=== PATIENT | male | born 1965 | race Caucasian/White ===

== ENCOUNTER 2019-01-15 08:36 | Inpatient (IN) ==
--- NOTE | 2019-01-10 12:42 | Anesthesiology Consultation ---
Date of Service January 10, 2019 Assessment & Plan (1) Encounter for pre-operative examination: Chart Review Chart Review: Acceptable Risk for Surgery and Patient NOT seen in Pre Admission Testing Consults Requested Pt seen by PCP on 01/07/19: "Recent labs reviewed. EKG obtained and NSR at 72 bpm. Pt okay to proceed with scheduled surgery." History Surgery Operation Date: 01/15/19 10:40 Proposed Procedures p Right Below Knee Amputation - Iraj Sauceda MD Height/Weight Height: 1.73 m Weight: 70.76 kg Allergies Allergy/AdvReac Type Severity Reaction Status Date / Time erythromycin base Allergy Intermediate swelling Verified 01/07/19 14:42 Penicillins Allergy Intermediate swelling Verified 01/07/19 14:42 phenazopyridine AdvReac Intermediate gi upsets Verified 01/07/19 14:42 [From Pyridium] Medications Home Medications Medication Instructions Recorded Confirmed Last Taken aspirin [Aspirin Low Dose] 81 mg PO QAM 01/07/19 01/07/19 Unknown cholecalciferol (vitamin D3) 1,000 unit PO QAM 01/07/19 01/07/19 Unknown [Vitamin D3] magnesium oxide 400 mg PO BID 01/07/19 01/07/19 Unknown mycophenolate mofetil [CellCept] 500 mg PO BID 01/07/19 01/07/19 Unknown prednisone 5 mg PO QAM 01/07/19 01/07/19 Unknown sulfamethoxazole-trimethoprim 1 tab PO 3XWK 01/07/19 01/07/19 Unknown [Bactrim] tacrolimus [Prograf] 2 mg PO Q12H 01/07/19 01/07/19 Unknown Past Medical History Medical History Anemia Chronic infection right foot - current issue Chronic steroid use History of anemia History of peritoneal dialysis Past Family History Family History Brother Family history of diabetes mellitus Past Surgical History Surgical History H/O foot surgery RT FOOT (OSTEOMYLITIS) History of herniorrhaphy History of tonsillectomy Hx of eye surgery x2 - detached retina both eyes Hx of kidney transplant both Hx of skin graft Social History Smoking Status: Former smoker Do You Dip or Chew Tobacco: No Smoking End Date: QUIT 5 YEARS AGO Hx Alcohol Use: No Hx Substance Use: No substance use type: does not use Testing Electrocardiogram Date: 12/27/18 Findings: + NSR @ (72) Echocardiogram Date: 08/17/15 EF: 55-60% LV Function: normal Other Findings: + LVH (mild CLVH) Thickened and calcified aortic valve. The aortic valve area is 2.7 cm2 and the mean gradient is 12 mmHg Laboratory Results 01/01/19 BMP: Na: 135 K: 5.4 Cl: 108 CO2: 21 BUN: 39 Creat: 2.3 Glu: 130 CBC: WBC: 2.7 HGB: 8.3 HCT: 26.1 Plt: 14.9
--- NOTE | 2019-01-10 13:05 | History & Physical Report ---
Date of Service January 10, 2019 Assessment & Plan (1) Osteomyelitis of right foot: Patient is scheduled for an elective below-knee amputation with Dr. Sauceda on January 15, 2019 at the [facility]. Risks and complications of the procedure were discussed with the patient and include but are not limited to infection, pain, bleeding, scarring, nerve and blood vessel damage, wound problems, weakness, stiffness, incomplete relief of symptoms, blood clots, embolisms, heart attack, stroke and . All questions were answered and informed consent was obtained by Dr. Sauceda. 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 We will obtain a preoperative CBC, BMP, type and screen, PT/PTT, tacrolimus, albumin, prealbumin and MRSA nasal swab prior to surgery. He was instructed on the usage of CHG cloths prior to surgery. Postoperative course was discussed. We will have him be out of work for at least 3 months after surgery. He will be referred for prosthesis postoperatively. He will most likely be admitted after surgery for a day or 2. All questions were answered and he knows to call with any further problems, questions or concerns. 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 She was sent to Dr. Sauceda by Dr. Salcido from the wound clinic at [place]. 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 He started having trouble with his right foot approximately 4-5 years ago. Patient developed kidney failure proximal by 4 years ago he developed a foot wound in his right foot in 2014. He did have surgery at that time in which an amputation was done. [His states] wound did grow out MRSA. He was on antibiotics and the wound did heal for approximately 2 years. His kidney condition worsen, he went on dialysis and eventually did have a kidney transplant. After being healed for about 2 years the wound open back up in February 2018. He was seen in [place] recently because of his wound problem and an amputation was recommended. He was excised scheduled for surgery but he opted to try IV antibiotics to save his foot instead. He has had a chronic open wound on his right foot ever since February 2018. Last week he spontaneous he developed bleeding from the wound which is review since sounds like it could have been arterial. He was seen at the [facility] which transferred to [facility] in [place]. Bleeding was stopped he was admitted did have x-rays and MRI and was discharged home. He has had no further bleeding continues to do daily packing changes. He does wear her boot on his right foot. He is able to weight-bear as tolerated. He is also continue to work. Basically to the point where he started dealing with the wound and reported to see Dr. Sauceda for surgical consultation. He has state that he has on a go to [place] to have it done and the previous orthopedic surgeons that he saw on the past the recommended surgery have elected not to perform any further surgeries on him. Due to the wound and the Charcot arthropathy of his right foot based on the x- ray and the MRI results surgical attention was recommended by Dr. Sauceda. He recommended a below-knee amputation. The patient has agreed to proceed with surgery. He is scheduled for below knee amputation with Dr. Sauceda on January 15, 2019. Allergies Allergy/AdvReac Type Severity Reaction Status Date / Time erythromycin base Allergy Intermediate swelling Verified 01/07/19 14:42 Penicillins Allergy Intermediate swelling/throat Verified 01/10/19 13:32 swelling phenazopyridine AdvReac Intermediate gi upsets Verified 01/07/19 14:42 [From Pyridium] Home Medications Home Medications Medication Instructions Recorded Confirmed Type aspirin [Aspirin Low Dose] 81 mg PO QAM 01/07/19 01/07/19 History cholecalciferol (vitamin D3) 1,000 unit PO QAM 01/07/19 01/07/19 History [Vitamin D3] magnesium oxide 400 mg PO BID 01/07/19 01/07/19 History mycophenolate mofetil [CellCept] 500 mg PO BID 01/07/19 01/07/19 History prednisone 5 mg PO QAM 01/07/19 01/07/19 History sulfamethoxazole-trimethoprim 1 tab PO 3XWK 01/07/19 01/07/19 History [Bactrim] tacrolimus [Prograf] 2 mg PO Q12H 01/07/19 01/07/19 History Past Med/Surg History Medical History Acid reflux Anemia Heart murmur Neuropathy Retinal detachment Chronic infection right foot - current issue Chronic steroid use History of anemia History of peritoneal dialysis Surgical History H/O foot surgery RT FOOT (OSTEOMYLITIS) History of herniorrhaphy History of tonsillectomy Hx of eye surgery x2 - detached retina both eyes Hx of kidney transplant both Hx of skin graft Family History Brother Family history of diabetes mellitus Social History Preferred Language: Northern Irish Communication Ability: Effective Beliefs That Will Affect Care: None Current Living Situation: Spouse Feels Safe at Home: Yes Smoking Status: Former smoker Hx Alcohol Use: No Hx Substance Use: No Review of Systems Constitutional: no fever, no chills, no sweats, no fatigue and no anorexia Eyes: no diplopia, no discharge, no dry eyes, no eye pain and no itchy eyes Ear, Nose, Mouth, Throat: no ear pain, no tinnitus, no hearing loss, no dizziness, no nasal congestion, no sinus pain/pressure, no dental pain, no dental caries and no sore throat Respiratory: + cough (recent cough, sinus drainage, but improving); no dyspnea and no dyspnea on exertion Cardiovascular: no chest pain, no chest pain at rest, no chest pain with activity, no radiating jaw, neck or arm pain, no dyspnea, no dyspnea at rest, no orthopnea, no palpitations, no lightheadedness, no syncope, no edema and no calf pain Gastrointestinal: no abdominal pain, no belching, no bloating, no heartburn, no constipation and no diarrhea/loose stools Genitourinary (Male): no dysuria, no difficulty urinating, no urinary frequency, no urinary incontinence, no post-void dribbling and no hematuria Musculoskeletal: no back pain, no neck pain, no radicular pain, no joint pain and no stiffness Integumentary: + wounds (right foot); no rash, no lesions, no sores, no erythema and no pruritus Neurologic: + loss of sensation, + numbness and + paresthesia; no gait abnormality, no unsteadiness, no seizure-like activity, no dizziness, no headache(s) and no confusion Psychiatric: + depression and + hopelessness Hematologic / Lymphatic: no easy bleeding, no easy bruising, no coagulopathy and no lymphadenopathy Physical Exam Vital Signs (Past 24 Hours): Height 5 feet 8 inches, weight 156 pounds Constitutional: WD/WN, vitals as above average body habitus; no acute distress Eyes: PERRL, conjunctivae normal, anicteric sclerae EOM intact bilaterally ENMT: external ear and nose normal, oropharynx normal Nose: no nasal discharge and no sinus tenderness Mouth: no oropharynx abnormality, no oral m ucosal abnormality and no dentition abnormality Throat: uvula midline Neck: trachea midline, no thyromegaly normal visual inspection; no neck crepitus Respiratory: normal respiratory effort, lungs clear to auscultation no cough Auscultation: no crackles, no rales, no rhonchi and no wheezes Cardiovascular: Rate/Rhythm: regular rate and regular rhythm Heart Sounds: + murmur (+3/6); no click and no gallop Palpation: no thrill Vessels: dorsalis pedis pulses present; no carotid bruit Extremities: normal capillary refill; no calf tenderness and no edema Gastrointestinal (Abdomen): normal bowel sounds, soft, nontender, no hepatosplenomegaly Musculoskeletal: no cyanosis or clubbing, extremities motor strength 5/5 Head/Neck/Chest: neck supple Extremities: strength 5/5 throughout He has diminished sensation throughout his right foot. The foot is bulbous and enlarged. There is a large wound in the lateral aspect of the foot which is currently packed. Packing was not removed. He reports normal sensation of his leg into the calf and knee area. He has good muscular development. He can flex and extend his ankle slightly. He is able to wiggle his toes. He does ambulate in a boot with no assistive device. Skin: no rashes, warm and dry normal turgor and + ulcer (Right foot) Psychiatric: A+Ox3, euthymic affect Results & Data Laboratory Results CBC, BMP, PT, PTT, type and screen, tacrolimus, albumin, prealbumin, MRSA nasal swab To be done preoperatively, currently pending. Diagnostic Findings X-rays of his right foot demonstrates severe neuropathic and also mild changes of the midfoot and forefoot. Talus and calcaneus as well as the ankle joint looked relatively okay.
[~2019-01-15 08:36] MED LIST: HYDROCORTISONE SOD 100 MG in SYRINGE 0 ML IV SCH; LR 15ML/HR IV SCH; SODIUM CHLORIDE 0.9% 1000ML IV SCH; SODIUM CHLORIDE 0.9% 250 ML IV PRN; VANCOMYCIN HCL 1,000 MG in SODIUM CHLORIDE 0.9% 250 ML IV SCH
[2019-01-15] MEDS ORDERED: fentaNYL citrate 100 MCG/2 ML VIAL ONE ×3 (11:08→14:35)
[2019-01-15] MEDS ORDERED: MIDAZOLAM HCL 1 MG/ML 2ML VIAL ONE (11:08)
[2019-01-15] MEDS ORDERED: DEXAMETHASONE SOD INJ 4 MG/ML VIAL ONE ×2 (11:15→14:14)
[2019-01-15] MEDS ORDERED: BUPIVACAINE/EPINEPHRINE 0.5% MPF 1:200,000 30 ML VIAL ONE (11:15)
--- NOTE | 2019-01-15 11:31 | History & Physical Bridge Note ---
Date of Service January 15, 2019 History & Physical Bridge Note I have examined the patient, reviewed the History & Physical and in the interval since the performance of the History & Physical I have noted the following changes of clinical significance: no changes noted
[2019-01-15] MEDS ORDERED: ePHEDrine sulfate 50 MG/ML AMP IV PRN (11:52)
[2019-01-15] MEDS ORDERED: ATROPINE SULFATE 0.1 MG/ML 10ML SYR IV PRN (11:52)
[2019-01-15] MEDS ORDERED: fentaNYL citrate 100 MCG/2 ML VIAL IV PRN (11:52)
[2019-01-15] MEDS ORDERED: ONDANSETRON INJ 2 MG/ML 2 ML VIAL IV PRN ×2 (11:52→16:59)
[2019-01-15] MEDS ORDERED: PROMETHAZINE HCL 6.25 MG in SODIUM CHLORIDE 0.9% 50 ML IV PRN (11:52)
[2019-01-15] MEDS ORDERED: PROPOFOL IV EMULSION 10 MG/ML 20 ML VIAL IV ONE (11:56)
[2019-01-15] MEDS ORDERED: LIDOCAINE HCL 2% 2 ML VIAL/AMP(20MG/ML) INFIL ONE (11:56)
[2019-01-15] MEDS ORDERED: POVIDONE-IODINE OP SOLN 30 ML BTL ONE (12:01)
[2019-01-15] MEDS ORDERED: ONDANSETRON INJ 2 MG/ML 2 ML VIAL ONE (14:14)
--- NOTE | 2019-01-15 14:35 | Fluoroscopy Report ---
FL knee RT 1 or 2V CLINICAL HISTORY: RIGHT BELOW KNEE AMPUTATION COMPARISON STUDY: None FLUOROSCOPY TIME: 5 seconds NUMBER OF FLUOROSCOPIC IMAGES: 2 FINDINGS: Findings consistent with a below-knee amputation. Expected soft tissue postoperative change s are seen. IMPRESSION: Below knee amputation right knee. Image intensifier support. The above report was generated using voice recognition software. It may contain grammatical, syntax or spelling errors. Electronically signed by: Alex Rolon M.D. 01/15/2019 2:33 PM
--- NOTE | 2019-01-15 15:46 | Operative Report ---
Post Operative Report Pre & Post Diagnosis Operation Date: 01/15/19 11:10 Pre-Op Diagnosis: Right Foot Osteomyelitis Post-Op Diagnosis: Right Foot Osteomyelitis Procedure Operation Date: 01/15/19 11:10 Actual Procedures p Right Below Knee Amputation(Right) - Iraj Sauceda MD Surgeon Iraj Sauceda M.D. Medical Biller/Coder Kerrie Warner PA-C Estimated Blood Loss 5 Findings Consistent with Post-Op Diagnosis Specimens right Lower leg/foot Anesthesia Type General Complications none Disposition Accompanied Patient To Recovery: No Disposition: Recovery Room Description of Procedure Patient was taken to the operating room, given general anesthesia. Time out performed, given 1 gm IV Vanco preoperatively. I was present during the entire case, please see Dr. Sauceda's operative report for further detail. Patient was awakened and taken to the recovery room in stable condition. I attest to the content of the Intraoperative Record and any orders documented therein. Any exceptions are noted below.
--- NOTE | 2019-01-15 15:56 | Anesthesiology Progress Note ---
Date of Service January 15, 2019 Anesthesia Post Procedure Vital Signs Vital Signs: Temp Pulse Resp BP Pulse Ox 01/15/19 09:35 36.4 C L 52 L 20 150/72 H 99 Notes Mental Status: alert / awake / arousable Patient Amnestic to Procedure: Yes Nausea / Vomiting: adequately controlled Pain: adequately controlled Airway Patency, RR, SpO2: stable & adequate BP & HR: stable & adequate Hydration State: stable & adequate Anesthetic Complications: no major complications apparent Notes: Blocks working well in pacu
--- NOTE | 2019-01-15 16:02 | Operative Report ---
Post Operative Report Pre & Post Diagnosis Operation Date: 01/15/19 11:10 Pre-Op Diagnosis: Right Foot Osteomyelitis Post-Op Diagnosis: Right Foot Osteomyelitis Procedure Operation Date: 01/15/19 11:10 Actual Procedures p Right Below Knee Amputation(Right) - Iraj Sauceda MD Surgeon Iraj Sauceda MD Collaborative Physician Kerrie Warner PA-C Estimated Blood Loss 5 Findings Consistent with Post-Op Diagnosis Specimens Amputated right leg Anesthesia Type General Regional Complications none Disposition Accompanied Patient To Recovery: No Disposition: Recovery Room Indications Patient is a 53-year-old male who has had a kidney transplant. He also has neuropathy. He has a year-long history of a draining wound in the right foot. Several years prior to that he had had surgery for osteomyelitis. Currently there is destructive changes throughout the midfoot consistent with potential Charcot changes and certainly consistent with osteomyelitis. Treatment options risks and benefits were discussed and after careful consideration he elected to proceed with a below-knee amputation which I think is the best level of amputation for this gentleman given the extent of the disease in the mid and hindfoot of his right leg. He is been seen and evaluated by his kidney doctor. Description of Procedure Informed consent obtained. I identified the patient. Preop surgical timeout p erformed. Preop dose of IV antibiotics given. He was positioned supine on the OR table with a tourniquet on the right thigh. The leg was prepped with Betadine and draped in the usual sterile fashion. After prepping the right foot was excluded from the field with an impervious stockinette prior to draping. DVT prophylaxis with mechanical devices and postoperatively with early mobility and Lovenox. Examination revealed an unstable midfoot with a 2-3 cm wide by 5 cm deep granulating and draining wound of the right lateral midfoot. He had palpable dorsalis pedis and posterior tib pulses 1+ Posey was used to exsanguinate the limb and the tourniquet was inflated to 250 mmHg. Fluoroscopic guidance was utilized and a 0.15 cm distal to the medial joint line was identified and marked. An oblique anterior transverse incision with a long posterior flap incision was laid out. The diameter of the leg was about 10 cm at the level of the resection in the distal flap of 12 cm in length was created. The skin was sharply incised. The plan was to resect the bone at about 14 cm. The tibial was marked at that location. The anterior compartment muscles were then divided half to 1 cm distal to this level. The deep peroneal nerve was identified transected and allowed to retract proximally. The anterior tibial artery was identified and triply ligated along with its vein and divided. In the lateral compartment the superficial peroneal nerve was identified divided and allowed to retract in the muscles were transected just distal to the level of the plan tibial amputation. The saphenous vein and lesser saphenous vein were identified dissected free and ligated with 2-0 silk ties in a single fashion and allowed to retract. The saphenous nerve and sural nerves were identified and transected as far proximal as possible away from the zone of incision. The major neurovascular structures which were triply ligated. I made a beveled cut proximal to distal on the anterior cortex of the tibia which was very prominent. Additionally the patient had a very thin subcutaneous layer. I then distal to this made a transverse cut at about 14-14-1/2 cm from the medial tibial plateau transecting the tibia. Blunt retractors were inserted posteriorly to protect the neurovascular structures. I removed a 1 inch segment of the tibia to improve visualization posteriorly. The tibial bone appeared normal. I then divided the deep posterior compartment muscles and sequentially identified the peroneal/fibular artery and vein as well as the posterior tibial artery and vein. These were triply ligated and resected at the level of the amputation. The tibial nerve was identified pulled distally and section as far proximal as possible. The fibula was then sectioned in an oblique fashion proximal lateral to distal medial about 1-1/2 cm proximal to the distal tibia. I then dissected the amputated part with its anterior lateral and deep posterior compartment musculature distally and then transected the superficial posterior compartment at the aforementioned distal level. The tourniquet was then let down and meticulous hemostasis was performed although there was not significant bleeding. The tissue quality overall was poor and the muscle wall viable and contractile did not bleed profusely suggesting microvascular disease. It also had a paler salmon color versus a darker red beefy color. There was no significant bleeding from the bone. The margins of the fibula were trimmed to prevent any sharp areas. The tibia was beveled with a rasp throughout to eliminate any sharp margins. Copious irrigation was performed with sterile saline and with Betadine lavage. An amputation knife was utilized to trim the superficial posterior compartment distally. A drain was inserted. The posterior compartment muscles were brought up to the anterior tibia. The superficial and deep fascia of the muscle were then incorporated into the periosteum and anterior and lateral compartment fascia using interrupted 0 Vicryl. This was then oversewn with running 2-0 Vicryl. The skin was closed with 3-0 Vicryl and 2-0 nylon. Simple, near far far near and horizontal mattress stitches were utilized. The leg was cleaned with wet and dry sponges and a well-padded soft sterile dressing was applied Xeroform 4 x 4's ABD cast padding followed by a posterior to anterior sugar tong type splint with the knee in extension. The patient was then awakened from anesthesia without difficulty and taken to the recovery room in stable condition. The resected limb was sent for specimen. There were no complications. Counts were correct. Blood loss was 5 cc. At the conclusion the operation spoke patient's family informed of my findings and discussed postoperative care. We will consult infectious diseases and nephrology. He will be placed on Lovenox if possible for DVT prophylaxis. We will consider getting him to acute care rehab for rehabilitation and prosthetic fitting once the wound has healed. I attest to the content of the Intraoperative Record and any orders documented therein. Any exceptions are noted below.
[2019-01-15 16:55] LABS: Hematocrit (blood only) 25.1 % (42-52); Hemoglobin 7.9 g/dL (14.0-18.0); Mean Corpuscular Volume 91.6 fL (80-100); Mean Platelet Volume 8.9 fL (7.4-10.4); Platelet Count 176 K/uL (130-400); RDW Coefficient of Variation 15.5 % (11.5-14.5); RDW Standard Deviation 52.1 fL (36.4-46.3); Red Blood Count 2.74 M/uL (4.7-6.1); White Blood Count 1.33 K/uL (4.8-10.8)
[2019-01-15] MEDS ORDERED: SOD PHOSPHATE/SOD BIPHOSPHATE ENEMA 132 ML BTL PR PRN (16:59)
[2019-01-15] MEDS ORDERED: HYDROmorphone INJ 0.5 MG/0.5 ML SYR IV PRN (16:59)
[2019-01-15] MEDS ORDERED: BISACODYL 10 MG SUPP PR PRN (16:59)
[2019-01-15] MEDS ORDERED: METOCLOPRAMIDE HCL INJ 5 MG/ML 2 ML VIAL IV PRN (16:59)
[2019-01-15] MEDS ORDERED: MAGNESIUM HYDROXIDE SUSP 30 ML UDC PO PRN (16:59)
[2019-01-15 17:00] LABS: Mean Corpuscular Hgb Conc 31.5 g/dL (32-36)
[2019-01-15 17:18] LABS: BUN Creatinine Ratio 24.6 (10-20); Calcium 7.7 mg/dl (8.5-10.1); Est GFR (African American) 50.8; Est GFR (Non-African American) 43.8; Potassium 5.9 mmol/L (3.5-5.1)
[2019-01-15] MEDS ORDERED: D5W AND 1/2NSS + 20MEQ KCL 20 MEQ/1,000 ML BAG IV SCH (18:00)
[2019-01-15] MEDS ORDERED: VANCOMYCIN CONSULT ACTIVE PRN (18:52)
[2019-01-15] MEDS: SODIUM CHLORIDE 0.9% 1000ML 1,000 ML IV SCH (19:11)
[2019-01-15] MEDS: VANCOMYCIN HCL 1,000 MG in SODIUM CHLORIDE 0.9% 250 ML IV SCH (19:13)
--- NOTE | 2019-01-15 20:28 | Pharmacy Report ---
Enoxaparin Dosing Consult - Date of Service January 15, 2019 - Pharmacy Dosing Scope Pharmacy is consulted to review the use of enoxaparin in a special risk patient population possibly prone to accumulate drug: renal impairment & to initiate/continue/recommend change in the setting of ordered PROPHYLACTIC enoxaparin sub-q dosing therapy, order appropriate labs and adjust drug/dose/frequency. - Subjective The patient is a 53 year old M admitted on 01/15/19 15:43 for Right Foot Osteomyelitis. Patient is to receive PROPHYLACTIC enoxaparin sub-q for post-op DVT prophylaxis. Pertinent PMH: Kidney transplant (baseline SCr ~2) - Objective Weight: 69.6 kg Laboratory Results:: Last 24 Hours 01/15/19 01/15/19 16:34 16:34 Hgb 7.9 L Hct 25.1 L Plt Count 176 BUN 43 H Creatinine 1.76 H Last 72 Hours 01/15/19 16:34 Plt Count 176 - Assessment & Plan Regarding PROPHYLACTIC Enoxaparin: Continue ordered enoxaparin 40 mg sub-q every 24 hours based on review of the following special population risk factors for drug accumulation: renal impairment or estimated creatinine clearance of 48 mL/min. Labs: * Ongoing Labs (P&T Approved): CBC q 3 days x 2 weeks, serum creat q 3 days We will continue to monitor this patient and make adjustments as needed. Thank you.
--- NOTE | 2019-01-15 20:48 | Pharmacy Report ---
Pharmacy Abx Initial Consult - Date of Service January 15, 2019 - Pharmacy Dosing Scope Date of Consult: 01/15 Consultation requested by: [facility] is consulted to initiate vancomycin IV dosing therapy, order appropriate labs and adjust drug dose/frequency. - Subjective The patient is a 53 year old M admitted on 01/15/19 15:43. - Objective Height: 5 ft 8 in Weight: 69.6 kg Vital Signs (Past 12hrs): Vital Signs Temp Pulse Pulse Resp BP BP Pulse Ox 01/15/19 18:47 66 17 111/65 100 01/15/19 17:52 36.5 C 58 L 17 166/81 H 96 01/15/19 17:19 36.6 C 58 L 17 172/85 H 100 01/15/19 16:45 36.5 C 63 18 166/80 H 100 01/15/19 16:20 66 14 147/73 H 100 01/15/19 16:16 64 14 171/80 H 100 01/15/19 16:15 62 17 100 01/15/19 16:10 63 22 151/72 H 100 01/15/19 16:05 64 15 153/76 H 100 01/15/19 16:01 36.7 C 64 16 153/76 H 100 01/15/19 16:00 69 22 100 01/15/19 15:55 66 13 157/74 H 100 01/15/19 15:52 65 13 169/74 H 100 01/15/19 15:50 67 16 100 01/15/19 15:45 67 14 167/79 H 100 01/15/19 15:40 67 23 161/75 H 100 01/15/19 15:35 67 16 161/80 H 100 01/15/19 15:32 36.6 C 68 68 14 160/82 H 160/82 H 100 01/15/19 09:35 36.4 C L 52 L 20 150/72 H 99 Lab Results (24hrs): Laboratory Tests (24 Hours) 01/15/19 01/15/19 16:34 16:34 WBC 1.33 L Creatinine 1.76 H Est Cr Clr Drug Dosing 48.0 - Risk Factors for Resistance * Immunocompromised (chronic steroid therapy, chemotherapy, immunomodulators) - Assessment & Plan Assessment 53 year old M admitted s/p R BKA for R foot osteomyelitis. Vancomycin 1 gm (15 mg/kg) was given preop and this was ordered to continue postop until 01/22. ID has been consulted but has not yet seen the patient. With patient's history of a kidney transplant, will need to be cautious with vancomycin dosing. Current SCr is just below baseline of ~2. Plan Vancomycin IV * Estimated PK Parameters: Vd 0.7 L/kg, Jamie 0.044 hr-1, t1/2 16 hr * Loading dose: No loading dose given as 15 mg/kg preop dose given at 0930 * Maintenance dose: 1000 mg IV (15 mg/kg) every 20 hours - will start this ~1900 tonight, when level expected to be within goal range * Goal trough level for osteomyelitis : 15 to 20 mcg/mL * Trough level ordered for 01/17/19 prior to the dose due at 11 am. Will need to check with the 3rd dose if SCr worsens or urine output is low. Pharmacy will continue to follow and will adjust dose/frequency as necessary. Thank you.
[2019-01-15] MEDS: MYCOPHENOLATE MOFETIL 250 MG CAP PO SCH (21:53)
[2019-01-15] MEDS: MAGNESIUM OXIDE 400 MG TAB PO SCH (21:53)
[2019-01-15] MEDS: ACETAMINOPHEN 500 MG TAB PO SCH (21:54)
[2019-01-15] MEDS: DOCUSATE SODIUM 100 MG CAP PO SCH (21:55)
[2019-01-15] MEDS: TACROLIMUS 1 MG CAP PO SCH (21:56)
[2019-01-16] MEDS: SODIUM CHLORIDE 0.9% 1000ML 1,000 ML IV SCH (05:21)
[2019-01-16] MEDS: ACETAMINOPHEN 500 MG TAB PO SCH ×3 (05:22→21:24)
[2019-01-16 05:58] LABS: Eosinophils # (auto) 0.01 K/uL (0-0.5); Eosinophils % (auto) 0.3 %; Hematocrit (blood only) 24.9 % (42-52); Hemoglobin 7.6 g/dL (14.0-18.0); Immature Granulocytes # (auto) 0.03 K/uL (0.00-0.02); Lymphocytes # (auto) 0.53 K/uL (1.2-3.4); Lymphocytes % (auto) 18.2 %; Mean Corpuscular Hgb Conc 30.5 g/dL (32-36); Mean Corpuscular Volume 90.9 fL (80-100); Mean Platelet Volume 9.2 fL (7.4-10.4); Monocytes # (auto) 0.32 K/uL (0.11-0.59); Neutrophils # (auto) 2.02 K/uL (1.4-6.5); Neutrophils % (auto) 69.5 %; Platelet Count 193 K/uL (130-400); RDW Coefficient of Variation 15.4 % (11.5-14.5); RDW Standard Deviation 51.9 fL (36.4-46.3); Red Blood Count 2.74 M/uL (4.7-6.1); White Blood Count 2.91 K/uL (4.8-10.8)
[2019-01-16 06:29] LABS: Creatinine Clr Calc Pharmacy 43.4 ml/min; Est GFR (African American) 44.8; Est GFR (Non-African American) 38.7
[2019-01-16 06:51] LABS: Anisocytosis Present
--- NOTE | 2019-01-16 07:52 | Anesthesiology Progress Note ---
Date of Service January 16, 2019 Anesthesia Post Procedure Vital Signs Vital Signs: Temp Pulse Pulse Pulse Resp BP BP 01/16/19 06:56 36.3 C L 51 L 16 118/69 01/16/19 03:19 36.5 C 58 L 16 161/79 H 01/16/19 01:50 60 166/72 H 01/15/19 23:41 36.6 C 61 16 175/80 H 01/15/19 18:47 66 17 111/65 01/15/19 17:52 36.5 C 58 L 17 166/81 H 01/15/19 17:19 36.6 C 58 L 17 172/85 H 01/15/19 16:45 36.5 C 63 18 166/80 H 01/15/19 16:20 66 14 147/73 H 01/15/19 16:16 64 14 171/80 H 01/15/19 16:15 62 17 01/15/19 16:10 63 22 151/72 H 01/15/19 16:05 64 15 153/76 H 01/15/19 16:01 36.7 C 64 16 153/76 H 01/15/19 16:00 69 22 01/15/19 15:55 66 13 157/74 H 01/15/19 15:52 65 13 169/74 H 01/15/19 15:50 67 16 01/15/19 15:45 67 14 167/79 H 01/15/19 15:40 67 23 161/75 H 01/15/19 15:35 67 16 161/80 H 01/15/19 15:32 36.6 C 68 68 14 160/82 H 160/82 H 01/15/19 09:35 36.4 C L 52 L 20 150/72 H Pulse Ox 01/16/19 06:56 100 01/16/19 03:19 99 01/16/19 01:50 01/15/19 23:41 100 01/15/19 18:47 100 01/15/19 17:52 96 01/15/19 17:19 100 01/15/19 16:45 100 01/15/19 16:20 100 01/15/19 16:16 100 01/15/19 16:15 100 01/15/19 16:10 100 01/15/19 16:05 100 01/15/19 16:01 01/15/19 16:00 100 01/15/19 15:55 100 01/15/19 15:52 100 01/15/19 15:50 100 01/15/19 15:45 100 01/15/19 15:40 01/15/19 15:35 01/15/19 15:32 100 01/15/19 09:35 99 Notes Mental Status: alert / awake / arousable and participated in evaluation Nausea / Vomiting: adequately controlled Pain: adequately controlled Airway Patency, RR, SpO2: stable & adequate BP & HR: stable & adequate Hydration State: stable & adequate
[2019-01-16] MEDS: DOCUSATE SODIUM 100 MG CAP PO SCH ×2 (08:38→21:19)
[2019-01-16] MEDS: MYCOPHENOLATE MOFETIL 250 MG CAP PO SCH ×2 (08:38→21:20)
[2019-01-16] MEDS: MAGNESIUM OXIDE 400 MG TAB PO SCH ×2 (08:38→21:21)
[2019-01-16] MEDS: ENOXAPARIN INJ 40 MG/0.4 ML SYR SQ SCH (08:38)
[2019-01-16] MEDS: ASPIRIN 81 MG ECTAB PO SCH (08:38)
[2019-01-16] MEDS: TACROLIMUS 1 MG CAP PO SCH ×2 (08:39→21:21)
[2019-01-16] MEDS: MULTIVITAMIN TAB PO SCH (08:39)
[2019-01-16] MEDS: PANTOprazole 40 MG TAB PO SCH (08:39)
[2019-01-16] MEDS: CHOLECALCIFEROL 1,000 UNITS TAB PO SCH (08:39)
[2019-01-16] MEDS: predniSONE 5 MG TAB PO SCH (08:39)
[2019-01-16] MEDS ORDERED: HYDROCORTISONE SOD 50 MG in SYRINGE 0 ML IV STA (10:40)
--- NOTE | 2019-01-16 10:49 | Progress Note ---
DATE: 01/16/2019 SUBJECTIVE: He is resting comfortably in bed. No problems are reported. Pain is minimal and well controlled. His drain dislodged last night. We looked at his dressing, confirmed that it was completely removed. His dressing is dry. Splint is in good condition. OBJECTIVE: His vital signs are noted. Consultations with infectious diseases and nephrology are pending. He had 50 mL of drainage. White count is 3, hemoglobin 8, hematocrit 25, platelets 193. His PRP is noted. Potassium is 5.9, BUN 43, creatinine 1.76. He has had a kidney transplant and has an osteomyelitis of his right foot with bony destruction and Charcopathic changes. IMPRESSION: He is status post below-knee amputation. PLAN: The plan is to continue hospitalization. He will have PT and OT as well as antibiotics. We will follow up on consultations with infectious diseases and nephrology. Martha for DVT prophylaxis. This will likely be a short course. I have spoken with Dr. More and we think that [facility] will be a good place for him to go to get the rehab needed and also to initiate the prosthesis process.
[2019-01-16] MEDS ORDERED: VITAMIN A 25,000 UNIT CAP PO STA (12:00)
--- NOTE | 2019-01-16 13:58 | Infectious Disease Consult ---
Date of Consultation January 16, 2019 Assessment & Plan (1) Osteomyelitis of right foot: s/p bka POD#1, surgery likely curative, would not continue additional abx at d/c. local wound care. no contraindication to d/c from ID standpoint when otherwise stable. History of Present Illness Attending Physician: Iraj Sauceda MD pt admitted for elective BKA right leg due to ongoing infection/osteomyelitis of right foot. states no recent abx, family at bedside. Admitted yesterday and underwent BKA 01/15, tolerated well. on vanco post op. no pain, no f/c. no abd pain, eating well. no n/v/d. no cp, sob, cough. states allergy to pcn but was desensitized last year and has tolerated zosyn well in the past. has h/o kidney transplant, on tacrolimus. tolerating well. wbc 2.9, creat 1.9, afebrile since admission. no OR cultures done, no path to review. denies incision pain, states dressing changed this am and looked well. Allergies Allergy/AdvReac Type Severity Reaction Status Date / Time erythromycin base Allergy Intermediate swelling Verified 01/15/19 09:31 Penicillins Allergy Intermediate swelling/throat Verified 01/15/19 09:31 swelling phenazopyridine AdvReac Intermediate gi upsets Verified 01/15/19 09:31 [From Pyridium] Home Medications Home Medications Medication Instructions Recorded Confirmed Type aspirin [Aspirin Low Dose] 81 mg PO QAM 01/07/19 01/15/19 History cholecalciferol (vitamin D3) 1,000 unit PO QAM 01/07/19 01/15/19 History [Vitamin D3] magnesium oxide 400 mg PO BID 01/07/19 01/15/19 History mycophenolate mofetil [CellCept] 500 mg PO BID 01/07/19 01/15/19 History prednisone 5 mg PO QAM 01/07/19 01/15/19 History sulfamethoxazole-trimethoprim 1 tab PO 3XWK 01/07/19 01/15/19 History [Bactrim] tacrolimus [Prograf] 2 mg PO Q12H 01/07/19 01/15/19 History Patient History Medical History Chronic infection right foot - current issue Chronic steroid use History of anemia History of peritoneal dialysis Acid reflux Anemia Heart murmur Neuropathy Retinal detachment Surgical History H/O foot surgery RT FOOT (OSTEOMYLITIS) History of herniorrhaphy History of tonsillectomy Hx of eye surgery x2 - detached retina both eyes Hx of kidney transplant both Hx of skin graft Family History Brother Family history of diabetes mellitus Social History Preferred Language: Belarusian 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 Impaired Required: No Beliefs That Will Affect Care: None Current Living Situation: Spouse Other Information That Helps Us Care for You: No Feels Safe at Home: Yes Safety Concerns: Feels Safe At This Time Smoking Status: Former smoker Hx Alcohol Use: No Hx Substance Use: No Review of Systems all remaining ros reviewed and are negative Physical Exam Vital Signs (Past 24 Hours): Last Vital Signs Temp 36.3 C L 01/16/19 06:56 Pulse 51 L 01/16/19 06:56 Resp 16 01/16/19 10:59 BP 113/67 01/16/19 10:59 Pulse Ox 100 01/16/19 06:56 Constitutional: WD/WN, vitals as above Eyes: PERRL, conjunctivae normal, anicteric sclerae ENMT: external ear and nose normal, oropharynx normal Neck: normal visual inspection Respiratory: normal respiratory effort, lungs clear to auscultation Cardiovascular: RRR, no murmur, no edema Gastrointestinal (Abdomen): normal bowel sounds, soft, nontender, no hepatosplenomegaly Musculoskeletal: no cyanosis or clubbing, extremities motor strength 5/5 rle dressing c/d/i, no drainage no bleeding Skin: no rashes, warm and dry Psychiatric: A+Ox3, euthymic affect
[2019-01-16] MEDS: OXYCODONE HCL IR 5 MG TAB (IMMEDIATE RELEASE) PO PRN (14:17)
[2019-01-16] MEDS ORDERED: VANCOMYCIN TROUGH ONE (14:30)
[2019-01-16] MEDS: VANCOMYCIN HCL 1,000 MG in SODIUM CHLORIDE 0.9% 250 ML IV SCH (14:54)
--- NOTE | 2019-01-16 15:31 | Pharmacy Report ---
Pharmacy Abx Dose Short Note - Date of Service January 16, 2019 - Assessment & Plan Assessment * 53 year old M receiving vancomycin for treatment of R foot osteomyelitis * Day #2 of antimicrobial therapy * s/p Right BKA; POD day #1 Plan Vancomycin * Trough level (drawn prior to 3rd dose) 15.2 mcg/mL is therapeutic * Change to 1000 mg IV every 24 hours due to slight decline in renal function * Goal trough level: 15 to 20 mcg/mL * Trough level will be ordered in two to three days based on continuation of therapy/changes in renal function Pharmacy will continue to follow and will adjust dose/frequency as necessary. Thank you.
--- NOTE | 2019-01-16 18:24 | Nephrology Consultation ---
Date of Consultation January 16, 2019 Assessment & Plan (1) Hyperkalemia: K 5.9 yesterday; this is a chronic issue for him though he had also been getting K - rich IVF which were running in OR but stopped last evening -ordered stat bmp >> K 5.0 on repeat -until K less than 5.5 consistently needs low K diet -will also start sodium bicarb 650 mg bid and thanks to nursing updated his home med list Present on Admission?: Yes (2) Renal transplant recipient: -cont current immunosuppression -hold off on tacro level for now unless renal function worsens from baseline -pt states has not had rituxan ever or other rejection therapy recently - somewhat unusual to be on bactrim still 2 yrs after txplt but will defer to [facility] on this Present on Admission?: Yes (3) Hypertension: no bp meds as OP but sbp in 150s -160s here; a few lower readings however in 110s and no sx; also had IVF yesterday and today -hold off on bp med for now Present on Admission?: Yes (4) Anemia of chronic disease: no po iron currently; hgb on outside labs has been in 8's since at least 06/2018 -iron studies ordered for am -transfuse for hgb <7 Present on Admission?: Yes (5) Chronic kidney disease: baseline creatinine had been mid-high ones from at least 06/2018 -10/2018 but then in 2019 has been more in 2.2-2.4 range >> no reason for worsening in 2019 except possibly recurrent infections; creat this evening 2.2 -check tacro level only if renal function worsening -monitor vancomycin levels before every dose of vanco -for now no renal f/u w/ [facility] needed unless acute issue arises and pt/ [facility] request; we will cont to follow at periphery however Present on Admission?: Yes History of Present Illness Reason for Consultation: renal transplant pt Requesting Physician: Dr Sauceda Attending Physician: Iraj Sauceda MD History of Present Illness 53 y/o M whom I'm asked to follow for renal transplant care after he was admitted for R BKA. He had been admitted to [facility] 12/27-12/30 for mgt of what proved to be R foot ostemyelitis after he presented to OSH w/ hypotension, concern for arterial bleed, and R 6 cm deep foot wound. MRI at OSH showed R osteomyelitis. Pt and family desired second opinion re RLE amputation recommended at [facility] and so left to get this; of note his K was 5.5 and he was started on sodium bicarb 650 mg bid at d/c (not on his admission medication list). On 01/15 he underwent R BKA; for d/c [facility] to [facility]. he has been started on vancomycin but inf dzs does not believe this needs to continue after d/c; trough today before dose was 15; has dose for tomorrow as well. His K last evening was 5.9; hgb in 7's. Repeat K today is 5.0. He sees my partner Dr Lopez in CKD clinic in [facility] for community txplt care, though last appt 12/2017; [facility] is his primary nephrology term currently. 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 He had 18 mos of HD and then got donor renalt txplt at [facility] in 02/2017 w/ some post txplt complications including seroma/urinoma needing drainage/pigtail and mild acute rejection on 06/2017 protocol bx treated w/ solumedrol. His immunosuppression currently is MMF 500 bid, FK 2 mg po bid, prednisone 5 mg daily. Also on bactrim. States he had repat renal bx d/t worsening renal function a few mos back and no new findings, no tx related to this. His creatinine since txplt runs 2.2-2.4 on labs in 2019, though from July - October 2018 his creatinine was consistently 1.4-1.8. Next [facility] txplt visit is April 2019; he gets labs for them weekly. Allergies Allergy/AdvReac Type Severity Reaction Status Date / Time erythromycin base Allergy Intermediate swelling Verified 01/15/19 09:31 Penicillins Allergy Intermediate swelling/throat Verified 01/15/19 09:31 swelling phenazopyridine AdvReac Intermediate gi upsets Verified 01/15/19 09:31 [From Pyridium] Home Medications Home Medications Medication Instructions Recorded Confirmed Type aspirin [Aspirin Low Dose] 81 mg PO QAM 01/07/19 01/15/19 History cholecalciferol (vitamin D3) 1,000 unit PO QAM 01/07/19 01/15/19 History [Vitamin D3] magnesium oxide 400 mg PO BID 01/07/19 01/15/19 History mycophenolate mofetil [CellCept] 500 mg PO BID 01/07/19 01/15/19 History prednisone 5 mg PO QAM 01/07/19 01/15/19 History sulfamethoxazole-trimethoprim 1 tab PO 3XWK 01/07/19 01/15/19 History [Bactrim] tacrolimus [Prograf] 2 mg PO Q12H 01/07/19 01/15/19 History sodium bicarbonate 650 mg PO BID 01/16/19 01/16/19 History Patient History Medical History Chronic infection right foot - current issue Chronic steroid use History of anemia History of peritoneal dialysis Acid reflux Anemia Heart murmur Neuropathy Retinal detachment Surgical History H/O foot surgery RT FOOT (OSTEOMYLITIS) History of herniorrhaphy History of tonsillectomy Hx of eye surgery x2 - detached retina both eyes Hx of kidney transplant both Hx of skin graft Family History Brother Family history of diabetes mellitus Social History Communication Ability: Effective Beliefs That Will Affect Care: None marital status: Current Living Situation: Spouse Other Information That Helps Us Care for You: No Feels Safe at Home: Yes Safety Concerns: Feels Safe At This Time Smoking Status: Former smoker Hx Alcohol Use: No Hx Substance Use: No Review of Systems Constitutional: + fatigue; no fever, no body aches, no weakness and no anorexia Eyes: no worsening vision Ear, Nose, Mouth, Throat: no dry mouth Respiratory: no cough and no dyspnea Cardiovascular: no chest pain, no palpitations and no edema Gastrointestinal: no abdominal pain, no vomiting and no change in bowel habits Genitourinary (Male): no dysuria, no difficulty urinating and no urinary hesitancy Musculoskeletal: no stiffness and no body aches Endocrine: + fatigue Hematologic / Lymphatic: no easy bleeding Physical Exam Vital Signs (Past 24 Hours): Last Vital Signs Temp 36.5 C 01/16/19 15:17 Pulse 59 L 01/16/19 15:17 Resp 18 01/16/19 15:17 BP 167/80 H 01/16/19 15:17 Pulse Ox 100 01/16/19 15:17 Constitutional: well developed and well nourished on RA, maneuvers readily for exam Eyes: EOM intact bilaterally ENMT: Ears: no external ear abnormality Nose: no external nose abnormality Mouth: + dry oral mucous membranes Neck: no nuchal rigidity Respiratory: normal respiratory effort, lungs clear to auscultation Cardiovascular: Rate/Rhythm: regular rate and regular rhythm Extremities: + AV fistula (LUE + t/b); no edema Gastrointestinal (Abdomen): Inspection/Auscultation: normal bowel sounds Percussion/Palpation: abdomen soft; abdomen nontender NT LLQ allograft Musculoskeletal: Extremities: strength 5/5 throughout Skin: no rashes, warm and dry Neurologic: hernandez, fluent speech, no tremor Psychiatric: A+Ox3, euthymic affect Genitourinary: no fernandez Results & Data Laboratory Results Abnormal lab results 01/16/19 01/16/19 Range/Units 05:27 05:27 WBC 2.91 L (4.8-10.8) K/uL RBC 2.74 L (4.7-6.1) M/uL Hgb 7.6 L (14.0-18.0) g/dL Hct 24.9 L (42-52) % MCHC 30.5 L (32-36) g/dL RDW Std Deviation 51.9 H (36.4-46.3) fL RDW Coeff of Kevyn 15.4 H (11.5-14.5) % Immature Gran # (Auto) 0.03 H (0.00-0.02) K/uL Lymph # (Auto) 0.53 L (1.2-3.4) K/uL Creatinine 1.95 H (0.6-1.4) mg/dl
[2019-01-16 19:39] LABS: BUN Creatinine Ratio 22.5 (10-20); Calcium 7.4 mg/dl (8.5-10.1); Creatinine Clr Calc Pharmacy 38.3 ml/min; Est GFR (African American) 38.6; Est GFR (Non-African American) 33.3
[2019-01-16 19:53] LABS: Beta-Hydroxybutyrate 0.66 mg/dl (0.2-2.81)
[2019-01-16] MEDS: SODIUM BICARBONATE 650 MG TAB PO SCH (21:20)
[2019-01-17] MEDS: ACETAMINOPHEN 500 MG TAB PO SCH ×3 (05:25→21:29)
[2019-01-17 06:38] LABS: BUN Creatinine Ratio 25.9 (10-20); Calcium 7.5 mg/dl (8.5-10.1); Creatinine Clr Calc Pharmacy 41.7 ml/min; Est GFR (African American) 42.7; Est GFR (Non-African American) 36.9; Magnesium 1.8 mg/dl (1.8-2.4); Potassium 4.9 mmol/L (3.5-5.1)
[2019-01-17] MEDS: OXYCODONE HCL IR 5 MG TAB (IMMEDIATE RELEASE) PO PRN (07:22)
[2019-01-17] MEDS: MYCOPHENOLATE MOFETIL 250 MG CAP PO SCH ×2 (08:26→21:26)
[2019-01-17] MEDS: ENOXAPARIN INJ 40 MG/0.4 ML SYR SQ SCH (08:26)
[2019-01-17] MEDS: ASPIRIN 81 MG ECTAB PO SCH (08:26)
[2019-01-17] MEDS: DOCUSATE SODIUM 100 MG CAP PO SCH ×2 (08:26→21:26)
[2019-01-17] MEDS: MULTIVITAMIN TAB PO SCH (08:27)
[2019-01-17] MEDS: MAGNESIUM OXIDE 400 MG TAB PO SCH ×2 (08:27→21:27)
[2019-01-17] MEDS: predniSONE 5 MG TAB PO SCH (08:27)
[2019-01-17] MEDS: PANTOprazole 40 MG TAB PO SCH (08:27)
[2019-01-17] MEDS: TACROLIMUS 1 MG CAP PO SCH ×2 (08:28→21:28)
[2019-01-17] MEDS: CHOLECALCIFEROL 1,000 UNITS TAB PO SCH (08:28)
[2019-01-17] MEDS: SODIUM BICARBONATE 650 MG TAB PO SCH ×2 (08:28→21:28)
--- NOTE | 2019-01-17 08:43 | Nephrology Progress Note ---
Date of Service January 17, 2019 Assessment & Plan (1) Hyperkalemia: K 5.9 on 01/15; this is a chronic issue for him though he had also been getting K - rich IVF which were running in OR but K improved after these were stopped -daily bmp while in house; weekly while at rehab per routine w/ txplt [facility] including tacro level which will require specifically timed labs -continue sodium bicarb 650 mg bid (2) Renal transplant recipient: -cont current immunosuppression -hold off on tacro level for now unless renal function worsens from baseline -pt states has not had rituxan ever or other rejection therapy recently - somewhat unusual to be on bactrim still 2 yrs after txplt but will defer to [facility] on this (3) Hypertension: no bp meds as OP but sbp in 150s -160s here; a few lower readings however in 110s and no sx; also had IVF yesterday and today -hold off on bp med for now --did advise him if sbp consistently in 150s or more at rehab may need low dose amlodipine w/ close tacro monitoring (4) Anemia of chronic disease: no po iron currently; hgb on outside labs has been in 8's since at least 06/2018 -iron studies show his stores are replete; no need for po iron or IV -transfuse for hgb <7 (5) Chronic kidney disease: baseline creatinine had been mid-high ones from at least 06/2018 -10/2018 but then in 2019 has been more in 2.2-2.4 range >> no reason for worsening in 2019 except possibly recurrent infections; creat this am 2.0 -check tacro level only if renal function worsening -monitor vancomycin levels before every dose of vanco; hold vanco for level > 25 -for now no renal f/u w/ [facility] needed unless acute issue arises and pt/ up request; we will cont to follow at periphery however Subjective seen on rounds this am 0830. eating well; no sob; no uncontrolled musculoskeletal pain; ambulating w/ asst - excited he has green socks now; no f/c; slight cough at times non productive. no bleeding. no voiding c/o. no chest pain palpitations, no rash, no focal numbness/weakness Physical Exam Vital Signs (Past 24 Hours): Last Vital Signs Temp 36.8 C 01/17/19 06:47 Pulse 64 01/17/19 06:47 Resp 18 01/17/19 06:47 BP 164/78 H 01/17/19 06:47 Pulse Ox 99 01/17/19 06:47 Constitutional: well developed and well nourished sitting on side of bed on RA eating Eyes: EOM intact bilaterally ENMT: Ears: no external ear abnormality Nose: no external nose abnormality Mouth: + dry oral mucous membranes Neck: no nuchal rigidity Respiratory: normal respiratory effort, lungs clear to auscultation Cardiovascular: Rate/Rhythm: regular rate and regular rhythm Extremities: + AV fistula (LUE + t/b); no edema Gastrointestinal (Abdomen): Inspection/Auscultation: normal bowel sounds Percussion/Palpation: abdomen soft; abdomen nontender NT allograft LLQ Musculoskeletal: Extremities: strength 5/5 throughout s/p R BKA Skin: no rashes, warm and dry Neurologic: hernandez, fluent speech Psychiatric: A+Ox3, euthymic affect Results & Data Laboratory Results Abnormal lab results 01/16/19 01/17/19 Range/Units 18:55 05:34 Sodium 134 L (136-145) mmol/L Chloride 111 H (98-107) mmol/L Carbon Dioxide 19 L (21-32) mmol/L BUN 50 H 53 H (7-18) mg/dl Creatinine 2.21 H 2.03 H (0.6-1.4) mg/dl BUN/Creatinine Ratio 22.5 H 25.9 H (10-20) Glucose 336 H 117 H (70-99) mg/dl Calcium 7.4 L 7.5 L (8.5-10.1) mg/dl Transferrin 112 L (200-360) mg/dl
[2019-01-17] MEDS ORDERED: VANCOMYCIN TROUGH ONE ×2 (10:30→14:30)
--- NOTE | 2019-01-17 12:29 | Progress Note ---
DATE: 01/17/2019 SUBJECTIVE: He is resting comfortably in bed. He has reported just within the last hour or so of left arm swelling. He did do PT. He did notice some swelling in the left arm. He has had no pain or injury. The arm shows 1+ pitting edema from the wrist up to the mid arm area. His neurovascular function and range of motion are intact. His AV shunt appears normal with a palpable and audible bruit. OBJECTIVE: Afebrile, vital signs stable. His PRP is noted. BUN and creatinine are stable. Dressing is changed. There is no hematoma formation. No necrosis. Capillary refill is good within the flap. There is no significant swelling. A new dressing is applied with a splint and the knee placed in full extension. IMPRESSION: Kidney transplant, osteomyelitis, right foot, status post below-knee amputation. PLAN: We will finish up a routine course of postop IV antibiotics. We will continue with Lovenox for DVT prophylaxis. Monitor the arm and elevate for swelling for now. Await decision on acute care rehab. This will be beneficial for his mobility as well as early stump shrinkage and prosthetic fitting. Dr. Guy's recommendations are noted. He received a routine course of postop IV stress-dose steroids.
[2019-01-17] MEDS ORDERED: VANCOMYCIN HCL 1,000 MG in SODIUM CHLORIDE 0.9% 250 ML IV SCH (15:00)
--- NOTE | 2019-01-17 15:41 | Pharmacy Report ---
Pharmacy Abx Dose Short Note - Date of Service January 17, 2019 - Assessment & Plan Assessment * 53 year old M receiving VANCOMYCIN IV (dosing per pharmacy) for treatment of R foot osteomyelitis * Day # 3 of ? of antimicrobial therapy. * Patient is s/p R BKA on 01/15/19 - duration of treatment not yet spelled out in treatment plan. ID is consulted. * Renal fxn appears to be worsening with rising (SCr 1.76 -->1.95 -->2.03) however baseline SCr reported to be within this range as well. * Nephrology has requested that trough level be checked prior to each dose of vancomycin Plan Vancomycin * Vancomycin 1000mg IV Q 20 hrs ordered on 01/15, however only 2 doses given. * Yesterday dose was changed to 1000mg IV Q 24 hrs however no doses given yet. Rather a dose was planned to be given today at 1500 however a trough return at 18.1 mcg/mL leading me to adjust the dosage down. * Goal trough for treatment of bone/joint infxn: 15-20mcg/mL * New dose: 750mg (~11mg/kg) IV Q 24 hrs * Will check trough tomorrow prior to dose scheduled for 1600 per Nephrology's request. Pharmacy will continue to follow and will adjust dose/frequency as necessary. Thank you.
[2019-01-17] MEDS ORDERED: VANCOMYCIN HCL 750 MG in SODIUM CHLORIDE 0.9% 250 ML IV SCH (16:00)
[2019-01-18] MEDS: ACETAMINOPHEN 500 MG TAB PO SCH ×2 (05:40→14:32)
[2019-01-18 06:17] LABS: Hematocrit (blood only) 24.5 % (42-52); Hemoglobin 7.6 g/dL (14.0-18.0); Mean Corpuscular Volume 91.4 fL (80-100); Mean Platelet Volume 8.8 fL (7.4-10.4); Platelet Count 209 K/uL (130-400); RDW Coefficient of Variation 15.5 % (11.5-14.5); RDW Standard Deviation 52.3 fL (36.4-46.3); Red Blood Count 2.68 M/uL (4.7-6.1); White Blood Count 2.72 K/uL (4.8-10.8)
[2019-01-18 06:52] LABS: Creatinine Clr Calc Pharmacy 43.1 ml/min; Est GFR (African American) 44.6; Est GFR (Non-African American) 38.5
[2019-01-18] MEDS: OXYCODONE HCL IR 5 MG TAB (IMMEDIATE RELEASE) PO PRN ×2 (09:50→14:32)
[2019-01-18] MEDS: SODIUM BICARBONATE 650 MG TAB PO SCH (09:52)
[2019-01-18] MEDS: TACROLIMUS 1 MG CAP PO SCH (09:53)
[2019-01-18] MEDS: MYCOPHENOLATE MOFETIL 250 MG CAP PO SCH (09:53)
[2019-01-18] MEDS: MAGNESIUM OXIDE 400 MG TAB PO SCH (09:53)
[2019-01-18] MEDS: DOCUSATE SODIUM 100 MG CAP PO SCH (09:54)
[2019-01-18] MEDS: predniSONE 5 MG TAB PO SCH (09:55)
[2019-01-18] MEDS: PANTOprazole 40 MG TAB PO SCH (09:55)
[2019-01-18] MEDS: ASPIRIN 81 MG ECTAB PO SCH (09:55)
[2019-01-18] MEDS: MULTIVITAMIN TAB PO SCH (09:55)
[2019-01-18] MEDS: CHOLECALCIFEROL 1,000 UNITS TAB PO SCH (09:56)
[2019-01-18] MEDS: ENOXAPARIN INJ 40 MG/0.4 ML SYR SQ SCH (09:57)
--- NOTE | 2019-01-18 14:15 | Progress Note ---
DATE: 01/18/2019 SUBJECTIVE: Left arm still is swollen, but perhaps less so. No pain or injury. He does have 1+ edema really of the left forearm. There is still a functional AV shunt in place. He has full movement with normal neurovascular function. His hand is not swollen. There is no tenderness. The splint and dressing are in place on the right leg. He has a kidney transplant, anemia of chronic disease, malnutrition and a right below-knee amputation secondary to osteomyelitis of the foot. OBJECTIVE: Vitals are fine. Labs are noted. Chronic anemia. ASSESSMENT: They have been accepted at [facility], but not until tomorrow. After further consideration, he would like to go home. He will follow up with me next week. PLAN: Continue his regular medicines. Lovenox 40 mg subQ daily. We will reassess activity next week. Vitamin A. He does not need any further antibiotics as the amputation should be curative. If anything changes regarding his residual right limb, he should contact my office. If anything changes with the left arm swelling, he should let us know as well. He will continue with his regular medications. 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
--- NOTE | 2019-01-18 14:33 | Discharge Summary ---
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 She was sent to Dr. Sauceda by Dr. Salcido from the wound clinic at [place]. 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 He started having trouble with his right foot approximately 4-5 years ago. Patient developed kidney failure proximal by 4 years ago he developed a foot wound in his right foot in 2014. He did have surgery at that time in which an amputation was done. [His states] wound did grow out MRSA. He was on antibiotics and the wound did heal for approximately 2 years. His kidney condition worsen, he went on dialysis and eventually did have a kidney transplant. After being healed for about 2 years the wound open back up in February 2018. He was seen in [place] recently because of his wound problem and an amputation was recommended. He was excised scheduled for surgery but he opted to try IV antibiotics to save his foot instead. He has had a chronic open wound on his right foot ever since February 2018. Last week he spontaneous he developed bleeding from the wound which is review since sounds like it could have been arterial. He was seen at the [facility] which transferred to [facility] in [place]. Bleeding was stopped he was admitted did have x-rays and MRI and was discharged home. 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 He does wear her boot on his right foot. He is able to weight-bear as tolerated. He is also continue to work. Basically to the point where he started dealing with the wound and reported to see Dr. Sauceda for surgical consultation. He has state that he has on a go to [place] to have it done and the previous orthopedic surgeons that he saw on the past the recommended surgery have elected not to perform any further surgeries on him. Due to the wound and the Charcot arthropathy of his right foot based on the x- ray and the MRI results surgical attention was recommended by Dr. Sauceda. He recommended a below-knee amputation. The patient has agreed to proceed with surgery. He is scheduled for below knee amputation with Dr. Sauceda on January 15, 2019. Discharge Data Consultations 01/15/19 16:59 Consult Case Management - Discharge Planning Routine Consult Infectious Diseases Routine Consult Nephrology Routine Procedures Performed Operation Date: 01/15/19 11:10 Actual Procedures p Right Below Knee Amputation(Right) - Iraj Sauceda MD Hospital Course (1) Osteomyelitis of right foot: Patient was admitted to [facility] on January 15, 2019 after undergoing an elective below-knee amputation with Dr. Iraj Sauceda. His surgery was performed with general anesthesia. He tolerated the procedure well without any intraoperative complications. Intraoperative x-rays were taken and are stable. Hemovac was placed during surgery. He was given IV vancomycin prior to surgery for about prophylaxis and this was continued during his inpatient stay. Postoperatively he was lateral out of bed, nonweightbearing right lower extremity with the assistance of a walker. A nephrology consult was placed for routine postoperative medical management. An infectious disease consultation was also placed for postoperative antibiotic recommendations. Their recommendation was that he would not need any further antibiotics after surgery. Nephrology consult recommendations were appreciated, he did have stable chronic anemia postoperatively. No transfusions were necessary. He was given a regular diet during his inpatient stay and tolerated that just fine. On postoperative day 2, His dressings were changed on his right lower extremity. Incision is clean dry and intact and new dressings were applied. He was to keep the splint on at all times. He had some elevated blood glucose levels from his lab work and do fingersticks twice a day were obtained due to that. His IV vancomycin was continued thousand milligrams every 24 hours. His was discontinued after his p.m. dose on January 17, 2019. Vital signs remained stable. Postoperative day 2 he also developed some swelling of his left upper extremity. His fistula remained functioning. Did not have any pain with it. He did not have any injury. It did improve with elevation and ice. He tolerated regular diet during his inpatient stay. A dietitian consult was placed for his mild attrition and recommendations were made. Lovenox 40 mg once a day was given for DVT prophylaxis and will be continued for 2-4 weeks after surgery. He continued in the postoperative day 3 but it was decided to just monitor that he was at home and follow up early next week. He was also seen and evaluated by physical therapy and occupational therapy and was stable for discharge to home. After discussion with the patient inpatient rehabilitation recommended in order to aid in the process for prosthetic. It took 2 days to get authorization to go to [facility] from his insurance. He was given the authorization but they did not have a bed for another day. He elected to return home with in-home nursing and therapy. Dr. Sauceda was agreeable to this. Case management set up and home health. He will follow up as an outpatient in our outpatient clinic as well as outpatient with [facility] in order to get a prosthesis. He was deemed safe for home discharge to his home in stable condition with his on January 18, 2019.
[2019-01-18] MEDS ORDERED: VANCOMYCIN TROUGH ONE (15:30)
--- NOTE | 2019-01-21 14:14 | Coding Query ---
CODING QUERY To promote full compliance with coding requirements relating to patient care, provider participation is requested in all cases of medication assistant uncertainty. Please assist us with the question(s) below: Coding Question(s): Patient admitted for charcot arthropathy and gangrene, had a below the knee amputation. Pt with transplanted kidney with labs 2.2-2.4 range creatinine. Please check below the kidney stage of patient during this admission. Thank you ! MATI Dooley [facility] Physician's Response(s): Chronic Kidney Disease: Stage I Stage 2 Stage 3 __X__ Stage 4 Stage 5 Stage 6 Other: please document: Principal Diagnosis: "that condition established after study, to be chiefly responsible for occasioning the admission of the patient to the hospital for care." Co-Existing Principal Diagnosis: "when two or more diagnoses equally meet the criteria for principal diagnosis as determined by the circumstances of admission, diagnostic work up, and/or therapy provided, and the Alphabetic Index, Tabular List, or another coding guideline does not provide sequencing direction, any one of the diagnoses may be sequenced first." "When the physician has documented what appears to be a current diagnosis in the body of the record, but has not included the diagnosis in the final diagnostic statement, the physician should be asked whether the diagnosis should be added." (Source Coding Clinic 2 QTR90. p3-4) PIPOD
== END 2019-01-18 15:29 | disposition home health service (06) | DRG 475 ==
LOC: ASU 08:36 → 3E 15:43